=== PATIENT | female | born 1975 | race Caucasian/White ===

== ENCOUNTER 2017-07-28 09:54 | Emergency (ER) | payer OTHER ==
[2017-07-28] MEDS ORDERED: Tetan/Diph/Pertus SYR(Tdap)* 0.5 ML SYR(BOOSTRIX) use SYR IM ONE (11:10)
[2017-07-28 11:14] VITALS: BP 188/108
--- NOTE | 2017-07-28 11:18 | ED ---
Skin Complaint - HPI Summary HPI Summary: Rt hand dominant pt here w/ Rt index finger lac prior to arrival. Was cutting a rope from hammock while camping - accidentally sliced finger. Was "deep and bleeding". cleaned with H202 wash, applied triple anbx + bandaid and pt has applied pressure since. Pain was burning - none now. Clean lac. Denies numbness, tingling, weakness. Unsure of last tetanus vaccine. - History of Current Complaint Chief Complaint: EDLacSutureRecheck Time Seen by Provider: 07/28/17 10:57 Stated Complaint: FINGER LAC Hx Obtained From: Patient, Family/Auto Technician - Pain Intensity: 4 - Allergy/Home Medications Allergies/Adverse Reactions: Allergies Allergy/AdvReac Type Severity Reaction Status Date / Time No Known Allergies Allergy Verified 07/28/17 09:58 PMH/Surg Hx/FS Hx/Imm Hx Previously Healthy: Yes Endocrine/Hematology History: Denies: Hx Anticoagulant Therapy, Hx Blood Disorders, Autoimmune Disease Cardiovascular History: Reports: Hx Hypertension - "borderline" - Immunization History Immunizations Up to Date: Unable to Obtain/Confirm Infectious Disease History: Denies: Hx of Known/Suspected MRSA, Traveled Outside the [place] in Last 30 Days - Family History Known Family History: Positive: None - Social History Occupation: Unemployed - stay at home mom Lives: With Family Alcohol Use: Rare Hx Substance Use: No Substance Use Type: Reports: None Hx Tobacco Use: Yes Smoking Status (MU): Current Every Day Smoker Review of Systems Positive: no symptoms reported Musculoskeletal: Negative Skin: Other - see HPI Neurological: Negative Psychological: Normal All Other Systems Reviewed And Are Negative: Yes Physical Exam Triage Information Reviewed: Yes Vital Signs On Initial Exam: Initial Vitals Temp Pulse Resp BP Pulse Ox 97.9 F 86 16 207/119 97 07/28/17 09:58 07/28/17 09:58 07/28/17 09:58 07/28/17 09:58 07/28/17 09:58 Vital Signs Reviewed: Yes Appearance: Positive: Well-Appearing, No Pain Distress, Well-Nourished Skin: Positive: Warm, Dry - linear laceration observed over Rt index finger - closed, cleaned and no active bleeding - attempted to separate tissue for investigation but wound has closed Cardiovascular: Positive: Pulses are Symmetrical in both Upper and Lower Extremities Musculoskeletal: Positive: Normal, Strength/ROM Intact Neurological: Positive: Normal, Sensory/Motor Intact, Alert, Oriented to Person Place, Time, CN Intact II-III Psychiatric: Positive: Normal Procedures - Procedure Summary Procedure Summary: 0.5cm x 1mm linear wound over Rt index finger - cleaned with antiseptic and sterile water - applied triple anbx ointment + bandaid + fingersplint - pt tolerated well Diagnostics - Vital Signs Vital Signs Temp Pulse Resp BP Pulse Ox 07/28/17 09:58 97.9 F 86 16 207/119 97 - Laboratory Lab Statement: Any lab studies that have been ordered have been reviewed, and results considered in the medical decision making process. Course/Dx - Diagnoses Provider Diagnoses: Laceration of right index finger Discharge - Discharge Plan Condition: Stable Disposition: HOME Patient Education Materials: Finger Laceration (ED) Referrals: Non Staff,Doctor [Primary Care Provider] - [facility] [place] [facility] [Outside] Additional Instructions: Keep wound covered with triple antibiotic ointment and bandaid - clean daily with soap and water - rinse well and reapply dressing For pain, swelling, you may rest with splint, elevate and ice You may also take ibuprofen with food for pain *if area becomes red, swollen, streaking, purulent drainage is present and/or your develop fever, chills, seek medical attention
== END 2017-07-28 12:08 | disposition home or self-care (01) ==
LOC: ED 09:54
DX: S61.210A Laceration without foreign body of right index finger without damage to nail, initial encounter (principal); W45.8XXA Other foreign body or object entering through skin, initial encounter; Y92.9 Unspecified place or not applicable
CPT/HCPCS: 90471; 90715; 99281